=== PATIENT | female | born 1945 | race Caucasian/White ===

== ENCOUNTER → 2017-09-07 | Outpatient (REF) | payer MEDICARE, OTHER ==
[~2017-09-07] MED LIST: ANA1 PO; ANAS1TAB34 PO; APIX5TAB PO; ASPI-715 PO; ASPI81TA15 PO; ASPI81TA94 PO; ATOR20TA22 PO; ATOR40TA24 PO; ATOR40TA69 PO; ATR10 PO; B1/B1TAB PO; CA C1TAB85 PO; CHOL100059 PO; CYA100 PO; DILT180C2 PO; DRON400T4 PO; EXEM25TA5 PO; FEXO-1 PO; FISH OIL1 CAP PO; GLUC-198 PO; HYDR-385 PO; IBU200 PO; KET10 PO; LEVO100T95 PO; LEVO112T43 PO; LOSA-51 PO; LOSA25TA50 PO; LOSA25TA51 PO; METF-410 PO; METO50TA19 PO; MIRT-22 PO; NASAL SPRAY; OLME1TAB51 PO; PER PO; PRAV10TA45 PO; PRAV20TA66 PO; PYRI100T57 PO; UBID400C2 PO; VITAMIN B12; [UNRECOGNIZED DRUG - OTHER]
== END ==
LOC: ZZSENDIN 16:23
PROVIDERS: ATTEND Physician Assistant
DX: N39.0 Urinary tract infection, site not specified (principal)
CPT/HCPCS: 81001

== ENCOUNTER → 2017-09-13 | Outpatient (CLI) | payer MEDICARE, OTHER ==
--- NOTE | 2017-09-13 10:41 | RADIOLOGY IMAGING REPORT ---
FACILITY: [facility] [place] PATIENT NAME: Joshua Rodas : 1945 MR: [id number] V: [id number] EXAM DATE: ORDERING PHYSICIAN: SELVIN YEPEZ TECHNOLOGIST: Location: [facility] Patient: Joshua Rodas : 1945 Visit/Account:[id number] Date of Sevice: 09/13/2017 LUMBAR SPINE 2 OR 3 VIEW HISTORY: Lower back pain for six months COMPARISON: CT examination abdomen pelvis October 2016 FINDINGS: There are five lumbar-type vertebra with mild to moderate multilevel spondylotic changes with interve rtebral disc space narrowing, increased endplate sclerosis and bony spurring. This is most significa nt at L4-L5. Neutral positioning demonstrates subtle 4 mm retrolisthesis of L4 on L5 and 3 mm retrol isthesis of L5 on S1. Mild facet arthrosis is noted throughout. No acute fracture. IMPRESSION: 1. Mild to moderate multilevel spondylotic changes, most significant at L4-L5. 2. Grade 1 retrolisthesis L4 on L5 and L5 on S1. 3. Mild facet arthrosis throughout Report Dictated By: Mert Snyder MD at 09/13/2017 10:35 AM Report E-Signed By: Mert Snyder MD at 09/13/2017 10:37 AM WSN:[email or web address]
== END ==
LOC: RAD 09:39
PROVIDERS: ATTEND Physician Assistant
DX: M47.897 Other spondylosis, lumbosacral region (principal)
CPT/HCPCS: 72100

== ENCOUNTER → 2017-09-14 | Outpatient (CLI) | payer MEDICARE, OTHER | LOC: MRI 12:32 | PROVIDERS: ATTEND Physician Assistant | DX: Q76.2 Congenital spondylolisthesis (principal) | CPT/HCPCS: 72148 ==

== ENCOUNTER → 2017-09-18 | Outpatient (CLI) | payer MEDICARE, OTHER ==
--- NOTE | 2017-09-14 15:00 | RADIOLOGY IMAGING REPORT ---
[facility] PATIENT NAME: Joshua Rodas : 1945 MR: [id number] V: [id number] EXAM DATE: ORDERING PHYSICIAN: LANETTE ALVARENGA TECHNOLOGIST: Location: [facility] [place] Patient: Joshua Rodas : 1945 Visit/Account:[id number] Date of Sevice: 09/14/2017 EXAMINATION: L SPINE W/O CONTRAST INDICATION: Congenital spondylolisthesis COMPARISON: Radiographs September 13, 2017, MR September 21, 2006 TECHNIQUE: Multiplane MR imaging was performed through the lumbar spine without contrast. FINDINGS: Vertebral bodies: Normal Conus position/signal: Normal Marrow signal: Degenerative edema surrounds multiple disc spaces. Extraspinal structures including psoas muscles/paraspinal soft tissues: Normal L1-2: New moderate disc space degeneration, new posterior endplate spurring. Small disc protrusion kennedy s increased in size. Increased ligamentum flavum thickening. New bilateral lateral recess narrowing a nd new moderate thecal sac narrowing. Mild new bilateral foraminal narrowing. L2-3: Small disc protrusion similar to prior. New small left superimposed posterior disc extrusion, a xial T2 image 14. Increased ligamentum flavum thickening. Unchanged prominence of posterior epidural space fat. Moderate to severe thecal sac narrowing has increased. The new left posterior disc extrusi on partially effaces the left lateral recess which has increased. Right lateral recess narrowing has increased. Moderate proximal unchanged left foraminal narrowing. Otherwise normal. L3-4: 4 mm disc protrusion has slightly increased in size. Increased ligamentum flavum thickening. Pr ominence of posterior epidural space fat as before. New 4.5 mm transverse dimension synovial cyst wit hin the right posterior aspect of the canal, axial T2 image 17. Bilateral lateral recess narrowing an d severe thecal sac narrowing have increased. Moderate unchanged left foraminal narrowing. Moderate t o severe unchanged right foraminal narrowing. Increased right facet arthropathy. L4-5: Severe unchanged disc space degeneration. Unchanged posterior endplate spurring. Small unchange d disc protrusion. Unchanged left laminectomy defect. Unchanged bilateral lateral recess narrowing an d mild thecal sac narrowing. Moderate to severe proximal left foraminal narrowing has increased. Mode rate to potentially severe unchanged right foraminal narrowing. L5-S1: Unchanged retrolisthesis of L5 on S1, small unchanged disc protrusion. Severe unchanged left f oraminal narrowing. Moderate to severe unchanged right foraminal narrowing. IMPRESSION: 1. New moderate L1-2 thecal sac narrowing secondary to the constellation of findings described above. 2. Moderate to severe L2-3 thecal sac narrowing has increased. Left greater than right L2-3 lateral r ecess narrowing has increased. 3. Severe L3-4 thecal sac narrowing has increased. 4. Multilevel foraminal narrowing, see level by level comments above. 5. See additional level by level comments above. Report Dictated By: Ángel Salguero MD at 09/14/2017 2:44 PM Report E-Signed By: Ángel Salguero MD at 09/14/2017 2:55 PM WSN:[email or web address]
[~2017-09-18] MED LIST changes: +AMIO200T47 PO; +MOM PO; +NITR2.5C15 PO; +ZOLP-350 PO
--- NOTE | 2017-09-18 15:09 | RADIOLOGY IMAGING REPORT ---
FACILITY: [facility] PATIENT NAME: MARISABEL MCGUIRE : [id number] MR: [id number] V: [id number] EXAM DATE: ORDERING PHYSICIAN: LANETTE ALVARENGA TECHNOLOGIST: Lorin Ybarra PROCEDURE:BILATERAL DIGITAL SCREENING MAMMOGRAM WITH CAD ASSISTED INTERPRETATION & 3D TOMOSYNTHESIS COMPARISON:Prior mammograms 09/15/16, 09/15/15, 07/03/14, 11/12/13. INDICATIONS:SCREENING FINDINGS: Dense heterogeneous fibroglandular tissue is seen throughout the breasts. There is architectural distortion from prior lumpectomy in the upper outer quadrant of the Right breast and also in the deep central Left breast from additional lumpectomy remains stable. There is no demonstration of malignant appearing mass, malignant appearing calcifications or other secondary sign of malignancy in either breast. DIAGNOSTIC CATEGORY 2--BENIGN FINDING. RECOMMENDATIONS: ROUTINE MAMMOGRAM AND CLINICAL EVALUATION. IMPRESSION: BIRADS 2: Benign finding No significant abnormality is seen. Dictated by: Zayra Rios M.D. on 09/18/2017 at 13:45 Transcribed by: MARTIN on 09/18/2017 at 14:22 Approved by: Zayra Rios M.D. on 09/18/2017 at 15:07 [facility]
== END ==
LOC: MAMO 03:34
PROVIDERS: ATTEND Internal Medicine Medical Oncology
DX: Z12.31 Encounter for screening mammogram for malignant neoplasm of breast (principal)
CPT/HCPCS: 72148; 77063; 77067

== ENCOUNTER 2017-09-20 15:15 | Outpatient (RCR) | payer MEDICARE, OTHER ==
[~2017-09-20 15:15] MED LIST changes: -AMIO200T47 PO; -METF-410 PO; +METF-411 PO; -MOM PO; -NITR2.5C15 PO; -ZOLP-350 PO
[2017-09-20 15:37] VITALS: BP 144/94
[2017-09-20] MEDS ORDERED: ZOLP-350 PO (15:54)
[2017-09-20] MEDS ORDERED: MOM PO (15:54)
[2017-09-20] MEDS ORDERED: NITR2.5C15 PO (15:54)
[2017-09-20] MEDS ORDERED: AMIO200T47 PO (15:54)
--- NOTE | 2017-09-21 04:08 | ONCOLOGY FOLLOW UP NOTE ---
EVENT DATE: September 20, 2017 REASON FOR FOLLOWUP Breast cancer. INTERIM HISTORY The patient returns to clinic for a followup visit today. Since our last visit , she has continued on Arimidex therapy. She has had minimal toxicity from the medication, but she does report some ongoing back pain. She had a recent MRI of the spine, and she plans to visit with neurosurgery in [place] soon. She reports modest hot flashes and some ongoing fatigue. She plans to have cataract surgery soon. She has been dealing with atrial fibrillation. She has undergone a few cardioversions, which have lasted for a brief period of time. She thinks she may need to have an ablation procedure. She states that she is quite concerned about the possibility of any future discontinuation of her adjuvant aromatase inhibitor. She is very concerned, given her history, about her risk of breast cancer recurrence. REVIEW OF SYSTEMS Otherwise negative, and all systems were reviewed. PAST MEDICAL HISTORY 1. Atrial fibrillation. 2. Hypertension. 3. Hypercholesterolemia. 4. Hypothyroidism. 5. Breast cancer (see below). ONCOLOGY HISTORY 1. Right breast cancer. a. January 10, 2005: Mammogram reveals calcifications and a 3.5 cm nodule. Ultrasound confirms 3.5 cm simple cyst and a 1.5 cm solid area felt to be suspicious. Needle localization is performed on January 20, 2005. This shows a 2.5 x 2.7 x 2.9 cm moderately differentiated infiltrative ductal carcinoma. Estrogen receptor was positive, and progesterone receptor was positive. HER2/ wayne was not over expressed. Patient undergoes lumpectomy with sentinel lymph node biopsy in January of 2005. She received adjuvant radiation therapy between May 2005 and July 2005. She had done well until January of 2012. See below. b. January 2012: Left breast mammogram reveals abnormality leading to lumpectomy and radiation therapy. She was started on adjuvant Aromasin thereafter. Patient continues on adjuvant Arimidex, as the switch was made from Aromasin due to toxicity. 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 She is a nonsmoker. There is no history of alcohol abuse. There is no history of illicit drug use. FAMILY HISTORY Positive for leukemia in her father, lymphoma in her brother and sister, and metastatic carcinoma of unknown primary in her sister's daughter. Her son from prostate cancer at age 51. CURRENT MEDICATIONS 1. Metoprolol. 2. Eliquis. 3. Lipitor. 4. Anastrozole. 5. Metformin. 6. Vitamin D3. 7. Nitroglycerin p.r.n. 8. Zolpidem p.r.n. 9. Magnesium twice daily. 10. Amiodarone. 11. Losartan/hydrochlorothiazide. 12. Levothyroxine. ALLERGIES No known drug allergies. VITAL SIGNS Temperature is 98.4, blood pressure 144/94, heart rate is 136, respirations 16, oxygen saturation is 93% on room air. Weight is 90.3 kg. PHYSICAL EXAMINATION GENERAL: Patient is alert and oriented x 3, in no apparent distress, sitting in the exam room chair. She appears healthy. She is interactive and pleasant. HEENT: Exam reveals anicteric sclerae, no significant oropharyngeal lesions. NEUROLOGIC: Exam is grossly nonfocal, and her gait is normal. EXTREMITIES: Exam reveals no edema, clubbing or cyanosis. SKIN: Exam reveals no concerning rash or lesion. LABORATORY STUDIES Laboratory studies are reviewed per the outside laboratory record. Her CBC reveals a modest leukocytosis, but chemistries are unremarkable. IMAGING DEXA scan performed in March 2017 revealed osteopenia in the left hip. Mammogram performed on September 18 shows no abnormality with repeat annual mammogram recommended. ASSESSMENT AND PLAN Breast cancer. I had a good visit with Joshua today. We reviewed her history of bilateral breast cancers, with first diagnosis in 2004, where she had received five years of adjuvant aromatase inhibitor therapy, and again in 2011. She continues on adjuvant aromatase inhibitor therapy with Arimidex. She does seem to be tolerating the Arimidex with very modest, if any toxicity. She does continue to have back pain, but it is unlikely to be due to her adjuvant endocrine therapy. She does have a high heart rate today, and she is planning to visit with cardiology soon about her atrial fibrillation. She has an upcoming cataract surgery as well. We discussed the ongoing use of adjuvant endocrine therapy. She is very worried about her risk of recurrence. She does have osteopenia noted on her March 2017 DEXA scan. As discussed today, I am not particularly opposed to having her continue with extended Aromatase inhibitor therapy, but we do need to be careful about her bone mineral density. I have recommended a repeat DEXA scan in March of 2017. She agrees to this plan. I will see her back after that time to review the results. She will continue with calcium and vitamin D supplementation in the meantime. Exercise has been difficult for her due to her back pain, however. I spent a total of 30 minutes of time face to face with the patient today, and 25 minutes of this was spent in direct counseling and coordination of care. HUGO
[2017-09-22] MEDS ORDERED: METO100T20 PO (13:37)
[2017-09-22] MEDS ORDERED: LOSA-54 PO (13:37)
[2017-09-22] MEDS ORDERED: ZOLP-358 PO (13:37)
[2017-09-22] MEDS ORDERED: MAGN30TA5 PO (13:38)
[2017-09-22] MEDS ORDERED: NIT3 SL (13:38)
[2017-09-22] MEDS ORDERED: AMIO200T47 PO (13:38)
== END 2017-10-25 14:03 | disposition home or self-care (01) ==
LOC: ONC 15:15
PROVIDERS: ATTEND Internal Medicine Medical Oncology
DX: C50.911 Malignant neoplasm of unspecified site of right female breast (principal); Z17.0 Estrogen receptor positive status [ER+]; Z79.811 Long term (current) use of aromatase inhibitors; I48.91 Unspecified atrial fibrillation; M85.80 Other specified disorders of bone density and structure, unspecified site; M54.9 Dorsalgia, unspecified
CPT/HCPCS: 99212

== ENCOUNTER 2017-09-29 00:46 | Day surgery (SDC) | payer MEDICARE, OTHER ==
[~2017-09-29] VITALS: Ht 137.2 cm; Wt 91.6 kg
[~2017-09-29 00:46] MED LIST changes: -METF-410 PO; +METF-411 PO
[2017-09-29] MEDS ORDERED: acetaZOLAMIDE 500 MG CAPCR PO ONE (06:00)
[2017-09-29] MEDS ORDERED: PROPOFOL EMUL(*) 10MG/ML 20 ML 20 ML ONE (08:22)
[2017-09-29 11:03] VITALS: BP 121/68
[2017-09-29] MEDS ORDERED: NORMOSOL R SOLN(*) 1000 ML BAG 1,000 ML IV PRN (11:30)
[2017-09-29] MEDS ORDERED: LIDOCAINE/SOD BICARB 8.4% SYR ID ONE (11:30)
[2017-09-29 13:10] VITALS: BP 126/98
[2017-09-29] MEDS ORDERED: OPHTHALMIC PROCEDURE 1 OU PRN (13:30)
[2017-09-29] MEDS ORDERED: OPHTHALMIC PROCEDURE 2 OU PRN ×2 (13:30)
--- NOTE | 2017-09-29 15:55 | FOSTER RIGHT EYE CATARACT ---
EVENT DATE: September 29, 2017 SURGEON: Shakir Iraheta MD ANESTHESIA: Topical. PREOPERATIVE DIAGNOSIS Cataract, right eye. POSTOPERATIVE DIAGNOSIS Cataract, right eye. PROCEDURE Phacoemulsification of cataractous lens with implantation of an intraocular lens , right eye. DESCRIPTION OF PROCEDURE The risks and benefits and alternatives were carefully discussed with the patient, and preoperative consent was obtained. The patient was brought to the operating room after receiving topical anesthetic. The patient was prepped and draped using sterile technique in the usual manner. A stab incision was made and the chamber was inflated with preservative-free lidocaine. DuoVisc was injected to inflate the chamber. A 2.2 mm blade was used to enter the anterior chamber. Utrata forceps were used to tear a circular capsulorrhexis. BSS was used to hydrodissect the nucleus. Phaco tip was introduced, and the nucleus was chopped into four quadrants. Each quadrant was removed. The I/A tip was used to remove the cortex. The bag was inflated with ProVisc. The intraocular lens was injected into the capsular bag. The I/A tip was used to remove the ProVisc. The wound was found to be watertight. Vigamox, Nevanac, and Maxitrol ointment were placed in the patient's eye. The patient's eye was patched, and the patient was taken to the recovery room in stable condition. The patient was examined in the recovery room and found to be stable prior to release from the hospital. HUGO
== END 2017-09-29 13:20 | disposition home or self-care (01) ==
LOC: OR 00:46
PROVIDERS: ATTEND Ophthalmology
DX: H25.11 Age-related nuclear cataract, right eye (principal); H25.12 Age-related nuclear cataract, left eye
CPT/HCPCS: 36415; 36416; 66984; 82948; 85027; 85610; A9270; J2704; V2632; 82310; 82374; 82435; 82565; 82947; 84132; 84295; 84520

== ENCOUNTER → 2017-09-29 | Outpatient (CLI) | payer MEDICARE, OTHER ==
[~2017-09-29] MED LIST changes: +AMIO200T47 PO; +LOSA-54 PO; +MAGN30TA5 PO; +METF-410 PO; -METF-411 PO; +METO100T20 PO; +MOM PO; +NIT3 SL; +NITR2.5C15 PO; +ZOLP-350 PO; +ZOLP-358 PO
[2017-09-29 11:22] LABS: INR 1.18
== END ==
LOC: LAB 10:29
PROVIDERS: ATTEND Internal Medicine
DX: Z01.810 Encounter for preprocedural cardiovascular examination (principal); I48.91 Unspecified atrial fibrillation
CPT/HCPCS: 36415; 82310; 82374; 82435; 82565; 82947; 84132; 84295; 84520; 85027; 85610

== ENCOUNTER → 2017-10-01 | Outpatient (REF) | payer MEDICARE, OTHER ==
[~2017-10-01] MED LIST changes: +METF-410 PO; -METF-411 PO
== END ==
LOC: ZZSTITCHES 11:14
PROVIDERS: ATTEND Physician Assistant
DX: N39.0 Urinary tract infection, site not specified (principal)
CPT/HCPCS: 87088

== ENCOUNTER → 2018-01-11 | Outpatient (CLI) | payer MEDICARE, OTHER ==
[~2018-01-11] MED LIST changes: -AMIO200T47 PO; +AMIO200T49 PO; -METF-410 PO; +METF-411 PO
== END ==
LOC: RESP 20:49
PROVIDERS: ATTEND Physician Assistant
DX: G47.33 Obstructive sleep apnea (adult) (pediatric) (principal); G47.36 Sleep related hypoventilation in conditions classified elsewhere

== ENCOUNTER → 2018-02-16 | Outpatient (REF) | payer MEDICARE, OTHER ==
[~2018-02-16] MED LIST changes: -LOSA25TA50 PO; +LOSA25TA52 PO; -METF-411 PO; +METF-450 PO
== END ==
LOC: ZZSENDIN 11:39
PROVIDERS: ATTEND Physician Assistant
DX: E83.42 Hypomagnesemia (principal)
CPT/HCPCS: 83735

== ENCOUNTER → 2018-03-02 | Outpatient (REF) | payer MEDICARE, OTHER | LOC: ZZSENDIN 11:17 | PROVIDERS: ATTEND Physician Assistant | DX: E83.42 Hypomagnesemia (principal) | CPT/HCPCS: 83735 ==

== ENCOUNTER → 2018-03-14 | Outpatient (CLI) | payer MEDICARE, OTHER ==
--- NOTE | 2018-03-14 15:34 | RADIOLOGY IMAGING REPORT ---
FACILITY: [facility] [place]IENT NAME: Joshua Rodas : 1945 MR: [id number] V: [id number] EXAM DATE: ORDERING PHYSICIAN: SELVIN YEPEZ TECHNOLOGIST: Location: [facility] - [place] Patient: Joshua Rodas : 1945 Visit/Account:[id number] Date of Sevice: 03/14/2018 KNEE 3 VIEW RIGHT HISTORY: Chronic right knee pain. No known injury. Additional history: None COMPARISON: Radiographs dated 08/01/2013 Findings: There is moderate joint space narrowing medial compartment with osteophytosis most prominen t in the medial and femoral patellar compartments. Minimal degenerative changes in the lateral miguel rtment. The appearances very similar to prior radiographs from 2013. On the lateral view there is a several small 1-2 mm radiodensities projecting over the anterior aspec t of the joint possibly representing a small intra-articular loose bodies. FINDINGS: Moderate right knee osteoarthropathy similar in appearance to 2014. IMPRESSION: Report Dictated By: Simba Gracia MD at 03/14/2018 3:27 PM Report E-Signed By: Simba Gracia MD at 03/14/2018 3:30 PM WSN:[id number]
== END ==
LOC: RAD 13:05
PROVIDERS: ATTEND Physician Assistant
DX: M17.11 Unilateral primary osteoarthritis, right knee (principal)

== ENCOUNTER → 2018-03-23 | Outpatient (CLI) | payer MEDICARE, OTHER | LOC: RESP 20:47 | PROVIDERS: ATTEND Physician Assistant | DX: G47.33 Obstructive sleep apnea (adult) (pediatric) (principal); G47.61 Periodic limb movement disorder; G47.36 Sleep related hypoventilation in conditions classified elsewhere ==

== ENCOUNTER → 2018-05-01 | Outpatient (CLI) | payer MEDICARE, OTHER ==
[~2018-05-01] MED LIST changes: -LOSA25TA52 PO; +LOSA25TA57 PO
--- NOTE | 2018-05-01 14:39 | RADIOLOGY IMAGING REPORT ---
FACILITY: [facility] [place] PATIENT NAME: Joshua Rodas : 1945 MR: [id number] V: [id number] EXAM DATE: ORDERING PHYSICIAN: LANETTE ALVARENGA TECHNOLOGIST: Location: [facility] Patient: Joshua Rodas : 1945 Visit/Account:[id number] Date of Sevice: 05/01/2018 DEXA Scan Clinical history: Osteopenia, breast cancer. Comparison: DEXA scan from . LUMBAR SPINE: The bone mineral density (BMD) measured from L1-L4 correlates with a Z-score of 3 and a T-score of 2 which is Normal as defined by the World Health Organization. The corresponding risk of fracture in t he lumbar spine is Not increased compared with a young adult reference population. This value has in creased by 1.1 % since the prior study. More than 5% change is considered significant. HIP: Bone mineral density (BMD) measured in the LEFT total hip region correlates with a Z-score zero and a T-score of -1.1 which is osteopenia as defined by the World Health Organization. The corresponding risk of fracture in the hip is 2-3 times increased compared to a young adult reference population. Th is value has decrease by 0.5 % since the prior study. More than 5% change is considered significant. T score left femoral neck -1.3 Bone mineral density (BMD) measured in the Femoral Neck region measures 0.863 g/cm?. IMPRESSION: 1. Lumbar spine: Normal. There has been 1.1% increase in the bone mineral density since the previou s exam. 2. Left Total Hip: Osteopenia. There has been 0.5% decrease in the bone mineral density since the p revious exam. 3. Femoral Neck: Bone Mineral Density is 0.863 g/cm? The next DEXA scan of this patient should include the following sites: L1-L4 and the left hip. FRAX? WHO Fracture Risk Assessment Tool link: <http://www.shef.ac.uk/FRAX/tool.jsp?locationValue=9> PLEASE NOTE: 1) The World Health Organization defines low BMD as follows: T-score Normal > -1 Osteopenia < -1 and > -2.5 Osteoporosis < -2.5 without fractures Established osteoporosis < -2.5 with fractures 2) In general, you may wish to consider: Diagnosis Treatment Follow-up DEXA Normal BMD Prevention 2-3 years Osteopenia Prevention/therapy 1-2 years Osteoporosis Therapy Yearly 3) Fracture risk estimated from the T-score is more accurate for vertebral fractures (often spontane ous) than for hip fractures. Report Dictated By: Zayra Rios MD at 05/01/2018 2:34 PM Report E-Signed By: Zayra Rios MD at 05/01/2018 2:35 PM WSN:[id number]
== END ==
LOC: RAD 02:08
PROVIDERS: ATTEND Internal Medicine Medical Oncology
DX: Z13.820 Encounter for screening for osteoporosis (principal); M85.80 Other specified disorders of bone density and structure, unspecified site
CPT/HCPCS: 77080

== ENCOUNTER 2018-05-11 11:00 | Outpatient (RCR) | payer MEDICARE, OTHER ==
[2018-02-12 16:10] VITALS: BP 104/70
[2018-02-12 16:11] VITALS: BP 122/70
--- NOTE | 2018-02-12 16:57 | CARDIAC REHAB PLAN OF CARE ---
Physician: Scotty Naqvi MD Patient is being seen: Fabi Self Medical Diagnosis: MVR, TVR, Afib Date of Onset: 01/25/18 Date of Initial Evaluation: 02/12/18 Date patient was last seen: 02/12/18 INTERVENTIONS: Due Date: 03/14/18 Patient Assessment: Patient comes to Cardiac Rehab following two valve repairs (both Mitral and Tricuspid Valves) and a Tripp-Maze IV Operation for her diagnosed atrial fibrillation. She also has a history of Type-2 Diabetes, hypertension, hyperlipidemia, breast cancer, and was recently diagnosed with sleep apnea. Over the next three months her main goals are to increase stamina and energy. She has a great support system through several different relatives (, daughter, and sister). She is currently sedentary but is eager to join the program. Exercise Assessment: During her 6-Minute Walk Test, the patient walked a total of 350ft, this amounted to an average speed of 0.66mph. She took three breaks during her test in which she sat for a minimum of 30 seconds to catch her breath and relax her back. Her SPO2 was WNL during the test (92-95%) on room air, which is above her resting (88%). She did, however, report significant shortness of breath at a +2 by minute 2 and +5 by minute 4. Her heart rate remained between 80-95bpm. While testing equipment she adhered to the recumbent bike well, stating it felt good on her knee and did not bother her back. This will be her primary form of exercise. Exercise Plan: Goals: By the end of the program it is our goals to have the patient exercising consistently for 150 minutes/week. This amounts to 50 minutes total per session. At least 30 of these minutes should be done consistently on the same machine (preferably the recumbent bike). It is also our goal to have her performing on average between 3-6 METs by the end of the program within her target HR goal at the time. Exercise Prescription: For the next month, the patients exercise prescription is as follows: Mode: Recumbent bike Frequency: 3 days/week (MWF) Duration: 15-30 minutes Intensity: HR 80-95bpm, 2.5-3.0 METs, RPE 2-3 Progression: The patients first goal will be to start progressing total time towards 30 minutes/session. Education: Primary exercise education will be on how to incorporate leisure time activity at home and how to properly progress exercise while at rehab over the next three months. Exercise Reassessment (Date: ): Exercise Discharge/Follow-Up (Date: ): Nutrition Assessment: Patient currently reports eating a typical [place] diet. This includes simple carbohydrates, lean meat, and fresh fruits/vegetables. She does regularly avoid dairy. She admits to having a sweet tooth and eating too many carbohydrates than she should. She and her family were receptive to the nutrition information provided and anxious to involve it on a familial level. She is diabetic but has it relatively under control as her HbA1c levels remain constant. She and her report starting to eat smaller portions and using portion control to help lose weight. The patient has a goal to eventually lose up to 30lbs. Nutrition Plan: Goals: Our goals for the program include helping the patient, and her family, develop nutritional behavior changes that can progress and be maintained through her lifetime. This include incorporating more whole grains, avoiding simple carbohydrates and sugar, and helping her understand nutrition label reading. Intervention: We will provide education to both the patient and her family through multiple sources including hard copy hand-outs and electronic versions that can be shared. Education: Education will focus first towards healthy food options, meals, and alternatives. We will then progress towards the how-tos of reading food/nutrition labels. Nutrition Reassessment (Date: ): Nutrition Discharge/Follow-Up (Date: ): Psychosocial Assessment: Patient reports at the higher end of normal depression limits according to the HADS assessment (7/21) and normal (4/21) for anxiety. This is confirmed verbally by the patient as she does admit to having some additional stress since her surgery and the difficulties following it. She does, however, have an amazing support system through her family that can aid in her process back to health. She is currently highly motivated to begin the program. Psychosocial Plan: Goals: Our goals will be to maintain the healthy psychosocial status the patient currently reports and to continue involving her family through the rehabilitation process. Intervention: We will continue to provide social support to the patient during her sessions as well as reach out to her family when appropriate for additional information and motivation. Education: Education will include ways to appropriately manage the anxiety associated with and learn to accept health decline her current health status. Psychosocial Reassessment (Date: ): Psychosocial Discharge/Follow-Up (Date: ): Diabetes Management Assessment: Patient is currently diagnosed with Type-2 Diabetes. She is currently taking metformin, but claims her physician told her that it is unnecessary to take her blood sugar levels as long as she is taking her medication. She does not follow a specific diet in hopes of controlling or altering her diabetes status. She says her HbA1c has remained stable for the past 3 years or so near 6.3. Diabetes Management Plan: Goals: Our primary goal will be to collect information on the patients T2D status to verify the information that she shares. Following this information, we will help the patient learn to appreciate and respect her diagnosis and take an active role in controlling and being aware of her status. Intervention: This will include why it is important to take and know her blood sugar levels and how exercise and diet can help her diabetes status and reverse any current or future complications associated with it. Education: Education will focus on diabetes normal values and possible outcomes from uncontrolled T2D, and how they can be affected by behavior change. Diabetes Management Reassessment (Date: ): Diabetes Management Discharge/Follow-Up (Date: ): Weight Management Assessment: Patient currently weights approximately 196lbs with a BMI of 34kg/m2. Her waist circumference is 112cm which is above the average for women and demonstrates excess adiposity. Patient reports she would like to lose close to 35lbs. Weight Management Assessment Plan: Goals: Our goals will be to help the patient establish healthy behavior change that will over time help promote weight loss. Intervention: Our primary intervention will be to incorporate healthy dietary changes that can be maintained as well as increasing leisure time activity. Education: We will educate the patient that 30lbs is not a realistic goal to have over such a short period of time. We will focus on the scientifically recommended 5% loss of body weight for improved quality of life, which equals to a 10lbs loss for her. Weight Management Assessment Reassessment (Date: ): Weight Management Assessment /Follow-Up (Date: ): Physician Signature: Date: MTDD
[2018-02-14 13:21] VITALS: BP 124/72
[2018-02-14 13:22] VITALS: BP 114/62
[2018-02-16 17:46] VITALS: BP 110/62
[2018-02-16 17:47] VITALS: BP 112/64
[2018-02-19 13:31] VITALS: BP_SYST 102; BP_SYST 116; BP_DIAS 62; BP_DIAS 66
[2018-02-21 13:07] VITALS: BP 124/72
[2018-02-21 13:09] VITALS: BP 112/70
[2018-02-23 13:18] VITALS: BP 114/66
[2018-02-23 13:19] VITALS: BP 114/66
[2018-02-26 13:22] VITALS: BP 116/70
[2018-02-26 13:23] VITALS: BP 116/66
[2018-02-28 13:28] VITALS: BP 110/62
[2018-02-28 13:29] VITALS: BP 112/74
[2018-03-02 17:10] VITALS: BP 130/68
[2018-03-02 17:11] VITALS: BP 110/64
[2018-03-05 17:46] VITALS: BP 120/72
[2018-03-05 17:47] VITALS: BP 128/80
[2018-03-07 13:34] VITALS: BP 118/80
[2018-03-07 13:35] VITALS: BP 132/84
--- NOTE | 2018-03-08 12:16 | CARDIAC REHAB PLAN OF CARE ---
Physician: Scotty Naqvi MD Patient is being seen: Fabi Self Medical Diagnosis: MVR, TVR, Afib Date of Onset: 01/25/18 Date of Initial Evaluation: 02/12/18 Date patient was last seen: 03/07/18 Number of treatments: 11 Number of cancellations/No Shows: 0 INTERVENTIONS: Due Date: 04/08/18 Patient Assessment: Patient comes to Cardiac Rehab following two valve repairs (both Mitral and Tricuspid Valves) and a Tripp-Maze IV Operation for her diagnosed atrial fibrillation. She also has a history of Type-2 Diabetes, hypertension, hyperlipidemia, breast cancer, and was recently diagnosed with sleep apnea. Over the next three months her main goals are to increase stamina and energy. She has a great support system through several different relatives (, daughter, and sister). She is currently sedentary but is eager to join the program. Exercise Assessment: During her 6-Minute Walk Test, the patient walked a total of 350ft, this amounted to an average speed of 0.66mph. She took three breaks during her test in which she sat for a minimum of 30 seconds to catch her breath and relax her back. Her SPO2 was WNL during the test (92-95%) on room air, which is above her resting (88%). She did, however, report significant shortness of breath at a +2 by minute 2 and +5 by minute 4. Her heart rate remained between 80-95bpm. While testing equipment she adhered to the recumbent bike well, stating it felt good on her knee and did not bother her back. This will be her primary form of exercise. Exercise Plan: Goals: By the end of the program it is our goals to have the patient exercising consistently for 150 minutes/week. This amounts to 50 minutes total per session. At least 30 of these minutes should be done consistently on the same machine (preferably the recumbent bike). It is also our goal to have her performing on average between 3-6 METs by the end of the program within her target HR goal at the time. Exercise Prescription: For the next month, the patients exercise prescription is as follows: Mode: Recumbent bike Frequency: 3 days/week (MWF) Duration: 15-30 minutes Intensity: HR 80-95bpm, 2.5-3.0 METs, RPE 2-3 Progression: The patients first goal will be to start progressing total time towards 30 minutes/session. Education: Primary exercise education will be on how to incorporate leisure time activity at home and how to properly progress exercise while at rehab over the next three months. Exercise Reassessment (Date: 03/08/18): The patient has been making significant progress over the past 3 weeks of rehab. Upon her enrollment she was extremely deconditioned and found it exhausting to do 15 minutes of exercise and often reported shortness of breath associated with exertion. Since then she has increased her total exercise duration to completing at least 45 minutes/session. During these sessions she has been able to maintain her targeted RPE and THR (averaging 80-85bpm) and has recently been able to average within her ideal MET range (2.6 METs). She also has not reported any shortness of breathrather she reports feeling good and being less fatigued. Lastly, she has also been motivated to start stretching at home on her own, which is a great behavior change. Due to this significant improvement we are going to create new target goals for this next month of exercise. Mode: Recumbent bike & NuStep Frequency: 3 days/week (MWF) Duration: 45-50 minutes/session Intensity: HR 85-95bpm, 2.5-3.5 METs, RPE 4-5 Progression: The patients next goal will be to maintain duration but increase intensity. By the end of the next month we would like her to be exercising on average at 3.5 METs. Exercise Discharge/Follow-Up (Date: ): Nutrition Assessment: Patient currently reports eating a typical [place] diet. This includes simple carbohydrates, lean meat, and fresh fruits/vegetables. She does regularly avoid dairy. She admits to having a sweet tooth and eating too many carbohydrates than she should. She and her family were receptive to the nutrition information provided and anxious to involve it on a familial level. She is diabetic but has it relatively under control as her HbA1c levels remain constant. She and her report starting to eat smaller portions and using portion control to help lose weight. The patient has a goal to eventually lose up to 30lbs. Nutrition Plan: Goals: Our goals for the program include helping the patient, and her family, develop nutritional behavior changes that can progress and be maintained through her lifetime. This include incorporating more whole grains, avoiding simple carbohydrates and sugar, and helping her understand nutrition label reading. Intervention: We will provide education to both the patient and her family through multiple sources including hard copy hand-outs and electronic versions that can be shared. Education: Education will focus first towards healthy food options, meals, and alternatives. We will then progress towards the how-tos of reading food/nutrition labels. Nutrition Reassessment (Date: 03/08/18): The patient and her family have been very receptive to nutritional information and have themselves asked for additional information they can provide to relatives. The patient reports continuing to eat smaller portions and enjoys the discussion about nutritional behavior changes. With this we will now move forward with instead of just providing information to now challenging her to make steps towards behavior change. We will start by having her assess the food she is currently eating and ask her to try making small changes to it (such as including whole grains and increasing vegetable intake). Nutrition Discharge/Follow-Up (Date: ): Psychosocial Assessment: Patient reports at the higher end of normal depression limits according to the HADS assessment (12/16) and normal (4/) for anxiety. This is confirmed verbally by the patient as she does admit to having some additional stress since her surgery and the difficulties following it. She does, however, have an amazing support system through her family that can aid in her process back to health. She is currently highly motivated to begin the program. Psychosocial Plan: Goals: Our goals will be to maintain the healthy psychosocial status the patient currently reports and to continue involving her family through the rehabilitation process. Intervention: We will continue to provide social support to the patient during her sessions as well as reach out to her family when appropriate for additional information and motivation. Education: Education will include ways to appropriately manage the anxiety associated with and learn to accept health decline her current health status. Psychosocial Reassessment (Date: 03/08/18): In reflection of the patients last few weeks at rehab and after talking with her one-on-one, she appears to be in higher spirits than when she started. She reports she feels a little more energized and is motivated by the progress she can see. She also says she enjoys having goalsit gives her something to work towards and helps to motivate her further. Lastly, we have been successful at involving her family in her rehab. They attend regularly with her and we have been able to provide them with information towards nutrition and additional stretching exercises which they report that have completed at home. All in all we will continue along this path over the next month and keep monitoring for improvements and setbacks as they arise. Psychosocial Discharge/Follow-Up (Date: ): Short Term Goals Met: Diabetes Management Assessment: Patient is currently diagnosed with Type-2 Diabetes. She is currently taking metformin, but claims her physician told her that it is unnecessary to take her blood sugar levels as long as she is taking her medication. She does not follow a specific diet in hopes of controlling or altering her diabetes status. She says her HbA1c has remained stable for the past 3 years or so near 6.3. Diabetes Management Plan: Goals: Our primary goal will be to collect information on the patients T2D status to verify the information that she shares. Following this information, we will help the patient learn to appreciate and respect her diagnosis and take an active role in controlling and being aware of her status. Intervention: This will include why it is important to take and know her blood sugar levels and how exercise and diet can help her diabetes status and reverse any current or future complications associated with it. Education: Education will focus on diabetes normal values and possible outcomes from uncontrolled T2D, and how they can be affected by behavior change. Diabetes Management Reassessment (Date: 03/08/18): We are unaware at this time as to any improvement made towards diabetes management. We have been focused on other educational aspectsall of which have been seeing positive outcomes. Over the next month we will try to focus more of our educational resources towards her awareness of her diabetic state. Diabetes Management Discharge/Follow-Up (Date: ): Weight Management Assessment: Patient currently weights approximately 196lbs with a BMI of 34kg/m2. Her waist circumference is 112cm which is above the average for women and demonstrates excess adiposity. Patient reports she would like to lose close to 35lbs. Weight Management Assessment Plan: Goals: Our goals will be to help the patient establish healthy behavior change that will over time help promote weight loss. Intervention: Our primary intervention will be to incorporate healthy dietary changes that can be maintained as well as increasing leisure time activity. Education: We will educate the patient that 30lbs is not a realistic goal to have over such a short period of time. We will focus on the scientifically recommended 5% loss of body weight for improved quality of life, which equals to a 10lbs loss for her. Weight Management Assessment Reassessment (Date: 03/08/18): The patient reports having lost significant amount of weight due to her previous edema and fluid retention. Most of that fluid has been lost now and she feels more comfortable. On top of that fluid loss, she reports that she has lost an additional 2lbs which she believes is strictly weight (not fluid). This is a great progress for her towards weight management, and we will continue to monitor her for future improvements and possible setbacks. Weight Management Assessment /Follow-Up (Date: ): Physician Signature: Date: RICARDOD
[2018-03-12 13:34] VITALS: BP_SYST 118; BP_SYST 132; BP_DIAS 70; BP_DIAS 74
[2018-03-14 13:11] VITALS: BP 118/80
[2018-03-14 13:12] VITALS: BP 124/74
[2018-03-16 17:24] VITALS: BP 104/64
[2018-03-16 17:25] VITALS: BP 112/70
[2018-03-19 17:37] VITALS: BP 114/76
[2018-03-19 17:39] VITALS: BP 110/68
[2018-03-21 13:50] VITALS: BP 120/78
[2018-03-21 13:52] VITALS: BP 118/78
[2018-03-23 13:11] VITALS: BP 142/78
[2018-03-23 13:12] VITALS: BP 120/76
[2018-03-26 13:02] VITALS: BP 138/78
[2018-03-26 13:08] VITALS: BP 122/78
[2018-03-28 13:32] VITALS: BP 124/70
[2018-03-28 13:33] VITALS: BP 110/60
[2018-04-02 17:01] VITALS: BP 122/72
[2018-04-02 17:15] VITALS: BP 112/60
[2018-04-04 13:21] VITALS: BP 132/80
[2018-04-04 13:22] VITALS: BP 112/62
[2018-04-04 17:10] VITALS: BP 132/80
[2018-04-06 13:25] VITALS: BP 128/80
[2018-04-06 13:27] VITALS: BP 122/78
[2018-04-09 13:12] VITALS: BP_SYST 122; BP_SYST 126; BP_DIAS 68; BP_DIAS 76
--- NOTE | 2018-04-10 12:04 | CARDIAC REHAB PLAN OF CARE ---
Physician: Scotty Naqvi MD Patient is being seen: Aramis Fabi Medical Diagnosis: MVR, TVR, Afib Date of Onset: 01/25/18 Date of Initial Evaluation: 02/12/18 Date patient was last seen: 04/09/18 Number of treatments: 23 INTERVENTIONS: Due Date: 05/10/18 Patient Assessment: Patient comes to Cardiac Rehab following two valve repairs (both Mitral and Tricuspid Valves) and a Tripp-Maze IV Operation for her diagnosed atrial fibrillation. She also has a history of Type-2 Diabetes, hypertension, hyperlipidemia, breast cancer, and was recently diagnosed with sleep apnea. Over the next three months her main goals are to increase stamina and energy. She has a great support system through several different relatives (, daughter, and sister). She is currently sedentary but is eager to join the program. Exercise Assessment: During her 6-Minute Walk Test, the patient walked a total of 350ft, this amounted to an average speed of 0.66mph. She took three breaks during her test in which she sat for a minimum of 30 seconds to catch her breath and relax her back. Her SPO2 was WNL during the test (92-95%) on room air, which is above her resting (88%). She did, however, report significant shortness of breath at a +2 by minute 2 and +5 by minute 4. Her heart rate remained between 80-95bpm. While testing equipment she adhered to the recumbent bike well, stating it felt good on her knee and did not bother her back. This will be her primary form of exercise. Exercise Plan: Goals: By the end of the program it is our goals to have the patient exercising consistently for 150 minutes/week. This amounts to 50 minutes total per session. At least 30 of these minutes should be done consistently on the same machine (preferably the recumbent bike). It is also our goal to have her performing on average between 3-6 METs by the end of the program within her target HR goal at the time. Exercise Prescription: For the next month, the patients exercise prescription is as follows: Mode: Recumbent bike Frequency: 3 days/week (MWF) Duration: 15-30 minutes Intensity: HR 80-95bpm, 2.5-3.0 METs, RPE 2-3 Progression: The patients first goal will be to start progressing total time towards 30 minutes/session. Education: Primary exercise education will be on how to incorporate leisure time activity at home and how to properly progress exercise while at rehab over the next three months. Exercise Reassessment (Date: 03/08/18): The patient has been making significant progress over the past 3 weeks of rehab. Upon her enrollment she was extremely deconditioned and found it exhausting to do 15 minutes of exercise and often reported shortness of breath associated with exertion. Since then she has increased her total exercise duration to completing at least 45 minutes/session. During these sessions she has been able to maintain her targeted RPE and THR (averaging 80-85bpm) and has recently been able to average within her ideal MET range (2.6 METs). She also has not reported any shortness of breathrather she reports feeling good and being less fatigued. Lastly, she has also been motivated to start stretching at home on her own, which is a great behavior change. Due to this significant improvement we are going to create new target goals for this next month of exercise. Mode: Recumbent bike & NuStep Frequency: 3 days/week (MWF) Duration: 45-50 minutes/session Intensity: HR 85-95bpm, 2.5-3.5 METs, RPE 4-5 Progression: The patients next goal will be to maintain duration but increase intensity. By the end of the next month we would like her to be exercising on average at 3.5 METs. Exercise Reassessment (Date: 04/09/18): Over the past month the patient has undergone assessment on her knee which has concluded with diagnosis of extensive osteoarthritis. The pain in her knee as a result has caused her to dial back her exercise accordingly. However, the patient is still highly motivated to exercise and likes to push herself to improve. We have had to help her pace herself so that her pain is not too bad the days following exercise. In regards to her previous goals, despite her knee pain she has been able to achieve most of her goals on average. She has been exercise for at least 40+ minutes each session and her MET level is on average 2.5 (which is at the lower end of her previous goal). However, since we have to dial back the intensity her heart rate does not achieve her target goal. Over the next month, her goals will be adjusted to the following: Mode: Recumbent bike, Arm Ergometer, and NuStep Frequency: 3 days/week (MWF) Duration: 40+ minutes/session Intensity: THR 10bpm > resting HR METS 2.5-3.0 We will also encourage her to continue stretching at home to help relieve any discomfort. Exercise Discharge/Follow-Up (Date: ): Nutrition Assessment: Patient currently reports eating a typical [place] diet. This includes simple carbohydrates, lean meat, and fresh fruits/vegetables. She does regularly avoid dairy. She admits to having a sweet tooth and eating too many carbohydrates than she should. She and her family were receptive to the nutrition information provided and anxious to involve it on a familial level. She is diabetic but has it relatively under control as her HbA1c levels remain constant. She and her report starting to eat smaller portions and using portion control to help lose weight. The patient has a goal to eventually lose up to 30lbs. Nutrition Plan: Goals: Our goals for the program include helping the patient, and her family, develop nutritional behavior changes that can progress and be maintained through her lifetime. This include incorporating more whole grains, avoiding simple carbohydrates and sugar, and helping her understand nutrition label reading. Intervention: We will provide education to both the patient and her family through multiple sources including hard copy hand-outs and electronic versions that can be shared. Education: Education will focus first towards healthy food options, meals, and alternatives. We will then progress towards the how-tos of reading food/nutrition labels. Nutrition Reassessment (Date: 03/08/18): The patient and her family have been very receptive to nutritional information and have themselves asked for additional information they can provide to relatives. The patient reports continuing to eat smaller portions and enjoys the discussion about nutritional behavior changes. With this we will now move forward with instead of just providing information to now challenging her to make steps towards behavior change. We will start by having her assess the food she is currently eating and ask her to try making small changes to it (such as including whole grains and increasing vegetable intake). Nutrition Reassessment (Date: 04/09/18): No update from previous reassessment. Nutrition Discharge/Follow-Up (Date: ): Psychosocial Assessment: Patient reports at the higher end of normal depression limits according to the HADS assessment (7/21) and normal (4/21) for anxiety. This is confirmed verbally by the patient as she does admit to having some additional stress since her surgery and the difficulties following it. She does, however, have an amazing support system through her family that can aid in her process back to health. She is currently highly motivated to begin the program. Psychosocial Plan: Goals: Our goals will be to maintain the healthy psychosocial status the patient currently reports and to continue involving her family through the rehabilitation process. Intervention: We will continue to provide social support to the patient during her sessions as well as reach out to her family when appropriate for additional information and motivation. Education: Education will include ways to appropriately manage the anxiety associated with and learn to accept health decline her current health status. Psychosocial Reassessment (Date: 03/08/18): In reflection of the patients last few weeks at rehab and after talking with her one-on-one, she appears to be in higher spirits than when she started. She reports she feels a little more energized and is motivated by the progress she can see. She also says she enjoys having goalsit gives her something to work towards and helps to motivate her further. Lastly, we have been successful at involving her family in her rehab. They attend regularly with her and we have been able to provide them with information towards nutrition and additional stretching exercises which they report that have completed at home. All in all we will continue along this path over the next month and keep monitoring for improvements and setbacks as they arise. Psychosocial Reassessment (Date: 04/09/18): The patient continues to be in high spirits and enjoy cardiac rehab. Her family has since stopped regularly attending her CR sessions, demonstrating to us the trust they have instilled in our ability to provide care. We will continue along the same path this next month. Psychosocial Discharge/Follow-Up (Date: ): Diabetes Management Assessment: Patient is currently diagnosed with Type-2 Diabetes. She is currently taking metformin, but claims her physician told her that it is unnecessary to take her blood sugar levels as long as she is taking her medication. She does not follow a specific diet in hopes of controlling or altering her diabetes status. She says her HbA1c has remained stable for the past 3 years or so near 6.3. Diabetes Management Plan: Goals: Our primary goal will be to collect information on the patients T2D status to verify the information that she shares. Following this information, we will help the patient learn to appreciate and respect her diagnosis and take an active role in controlling and being aware of her status. Intervention: This will include why it is important to take and know her blood sugar levels and how exercise and diet can help her diabetes status and reverse any current or future complications associated with it. Education: Education will focus on diabetes normal values and possible outcomes from uncontrolled T2D, and how they can be affected by behavior change. Diabetes Management Reassessment (Date: 03/08/18): We are unaware at this time as to any improvement made towards diabetes management. We have been focused on other educational aspectsall of which have been seeing positive outcomes. Over the next month we will try to focus more of our educational resources towards her awareness of her diabetic state. Diabetes Management Reassessment (Date: 04/09/18): No update from the previous reassessment. Our focus this past month turned towards her osteoarthritis. Once this is controlled we will begin again with nutritional and diabetes management information. Diabetes Management Discharge/Follow-Up (Date: ): Weight Management Assessment: Patient currently weights approximately 196lbs with a BMI of 34kg/m2. Her waist circumference is 112cm which is above the average for women and demonstrates excess adiposity. Patient reports she would like to lose close to 35lbs. Weight Management Assessment Plan: Goals: Our goals will be to help the patient establish healthy behavior change that will over time help promote weight loss. Intervention: Our primary intervention will be to incorporate healthy dietary changes that can be maintained as well as increasing leisure time activity. Education: We will educate the patient that 30lbs is not a realistic goal to have over such a short period of time. We will focus on the scientifically recommended 5% loss of body weight for improved quality of life, which equals to a 10lbs loss for her. Weight Management Assessment Reassessment (Date: 03/08/18): The patient reports having lost significant amount of weight due to her previous edema and fluid retention. Most of that fluid has been lost now and she feels more comfortable. On top of that fluid loss, she reports that she has lost an additional 2lbs which she believes is strictly weight (not fluid). This is a great progress for her towards weight management, and we will continue to monitor her for future improvements and possible setbacks. Weight Management Reassessment (Date: 04/09/18): No update from previous reassessment. We will follow up with the patient to see if there have been any improvements or set backs. Weight Management Assessment /Follow-Up (Date: ): Physician Signature: Date: MTDD
[2018-04-13 13:31] VITALS: BP 120/70
[2018-04-13 13:33] VITALS: BP 120/74
[2018-04-25 12:56] VITALS: BP 124/70
[2018-04-25 12:57] VITALS: BP 116/72
[2018-04-27 18:21] VITALS: BP 102/64
[2018-04-27 18:22] VITALS: BP 98/72
[2018-04-30 13:34] VITALS: BP 104/68
[2018-04-30 13:35] VITALS: BP 104/60
[2018-05-02 17:54] VITALS: BP 120/78
[2018-05-02 17:56] VITALS: BP 102/62
[2018-05-04 13:09] VITALS: BP 120/72
[2018-05-04 13:10] VITALS: BP 118/68
[2018-05-07 13:03] VITALS: BP 128/70
[2018-05-07 13:04] VITALS: BP 122/70
--- NOTE | 2018-05-08 08:34 | CARDIAC REHAB PLAN OF CARE ---
Physician: Chaka Naqvi MD Patient is being seen: Aramis Fabi Medical Diagnosis: MVR, TVR, Afib Date of Onset: 01/25/18 Date of Initial Evaluation: 02/12/18 Date patient was last seen: 05/07/18 Number of treatments: 30 Number of cancellations/No Shows: 5 INTERVENTIONS: Due Date: 06/08/17 Patient Assessment: Patient comes to Cardiac Rehab following two valve repairs (both Mitral and Tricuspid Valves) and a Tripp-Maze IV Operation for her diagnosed atrial fibrillation. She also has a history of Type-2 Diabetes, hypertension, hyperlipidemia, breast cancer, and was recently diagnosed with sleep apnea. Over the next three months her main goals are to increase stamina and energy. She has a great support system through several different relatives (, daughter, and sister). She is currently sedentary but is eager to join the program. Exercise Assessment: During her 6-Minute Walk Test, the patient walked a total of 350ft, this amounted to an average speed of 0.66mph. She took three breaks during her test in which she sat for a minimum of 30 seconds to catch her breath and relax her back. Her SPO2 was WNL during the test (92-95%) on room air, which is above her resting (88%). She did, however, report significant shortness of breath at a +2 by minute 2 and +5 by minute 4. Her heart rate remained between 80-95bpm. While testing equipment she adhered to the recumbent bike well, stating it felt good on her knee and did not bother her back. This will be her primary form of exercise. Exercise Plan: Goals: By the end of the program it is our goals to have the patient exercising consistently for 150 minutes/week. This amounts to 50 minutes total per session. At least 30 of these minutes should be done consistently on the same machine (preferably the recumbent bike). It is also our goal to have her performing on average between 3-6 METs by the end of the program within her target HR goal at the time. Exercise Prescription: For the next month, the patients exercise prescription is as follows: Mode: Recumbent bike Frequency: 3 days/week (MWF) Duration: 15-30 minutes Intensity: HR 80-95bpm, 2.5-3.0 METs, RPE 2-3 Progression: The patients first goal will be to start progressing total time towards 30 minutes/session. Education: Primary exercise education will be on how to incorporate leisure time activity at home and how to properly progress exercise while at rehab over the next three months. Exercise Reassessment (Date: 03/08/18): The patient has been making significant progress over the past 3 weeks of rehab. Upon her enrollment she was extremely deconditioned and found it exhausting to do 15 minutes of exercise and often reported shortness of breath associated with exertion. Since then she has increased her total exercise duration to completing at least 45 minutes/session. During these sessions she has been able to maintain her targeted RPE and THR (averaging 80-85bpm) and has recently been able to average within her ideal MET range (2.6 METs). She also has not reported any shortness of breathrather she reports feeling good and being less fatigued. Lastly, she has also been motivated to start stretching at home on her own, which is a great behavior change. Due to this significant improvement we are going to create new target goals for this next month of exercise. Mode: Recumbent bike & NuStep Frequency: 3 days/week (MWF) Duration: 45-50 minutes/session Intensity: HR 85-95bpm, 2.5-3.5 METs, RPE 4-5 Progression: The patients next goal will be to maintain duration but increase intensity. By the end of the next month we would like her to be exercising on average at 3.5 METs. Exercise Reassessment (Date: 04/09/18): Over the past month the patient has undergone assessment on her knee which has concluded with diagnosis of extensive osteoarthritis. The pain in her knee as a result has caused her to dial back her exercise accordingly. However, the patient is still highly motivated to exercise and likes to push herself to improve. We have had to help her pace herself so that her pain is not too bad the days following exercise. In regards to her previous goals, despite her knee pain she has been able to achieve most of her goals on average. She has been exercise for at least 40+ minutes each session and her MET level is on average 2.5 (which is at the lower end of her previous goal). However, since we have to dial back the intensity her heart rate does not achieve her target goal. Over the next month, her goals will be adjusted to the following: Mode: Recumbent bike, Arm Ergometer, and NuStep Frequency: 3 days/week (MWF) Duration: 40+ minutes/session Intensity: THR 10bpm > resting HR METS 2.5-3.0 We will also encourage her to continue stretching at home to help relieve any discomfort. Exercise Reassessment (Date: 05/08/18): The patient has continued to be highly motivated to exercise despite her osteoarthritis. She had a cortisone shot in her knee, but she reports that is has not helped and the pain still persists. She has met all her previous goals for [id number]+ minutes/session with average METs between 2.5-3.0. We hope to continue this through the last two weeks. By the time the patients 36 visits are complete, we would ideally like to see her continue to phase III. We also will provide her with information pertaining to stretches and regular cardiorespiratory exercise. Exercise Discharge/Follow-Up (Date: ): Nutrition Assessment: Patient currently reports eating a typical [place] diet. This includes simple carbohydrates, lean meat, and fresh fruits/vegetables. She does regularly avoid dairy. She admits to having a sweet tooth and eating too many carbohydrates than she should. She and her family were receptive to the nutrition information provided and anxious to involve it on a familial level. She is diabetic but has it relatively under control as her HbA1c levels remain constant. She and her report starting to eat smaller portions and using portion control to help lose weight. The patient has a goal to eventually lose up to 30lbs. Nutrition Plan: Goals: Our goals for the program include helping the patient, and her family, develop nutritional behavior changes that can progress and be maintained through her lifetime. This include incorporating more whole grains, avoiding simple carbohydrates and sugar, and helping her understand nutrition label reading. Intervention: We will provide education to both the patient and her family through multiple sources including hard copy hand-outs and electronic versions that can be shared. Education: Education will focus first towards healthy food options, meals, and alternatives. We will then progress towards the how-tos of reading food/nutrition labels. Nutrition Reassessment (Date: 03/08/18): The patient and her family have been very receptive to nutritional information and have themselves asked for additional information they can provide to relatives. The patient reports continuing to eat smaller portions and enjoys the discussion about nutritional behavior changes. With this we will now move forward with instead of just providing information to now challenging her to make steps towards behavior change. We will start by having her assess the food she is currently eating and ask her to try making small changes to it (such as including whole grains and increasing vegetable intake). Nutrition Reassessment (Date: 04/09/18): No update from previous reassessment. Nutrition Reassessment (Date: 05/08/18): The patient has been provided with healthy holiday eating guides and is set to create a new years resolution aiming towards nutritional goals. Nutrition Discharge/Follow-Up (Date: ): Psychosocial Assessment: Patient reports at the higher end of normal depression limits according to the HADS assessment (12/16) and normal (09/16) for anxiety. This is confirmed verbally by the patient as she does admit to having some additional stress since her surgery and the difficulties following it. She does, however, have an amazing support system through her family that can aid in her process back to health. She is currently highly motivated to begin the program. Psychosocial Plan: Goals: Our goals will be to maintain the healthy psychosocial status the patient currently reports and to continue involving her family through the rehabilitation process. Intervention: We will continue to provide social support to the patient during her sessions as well as reach out to her family when appropriate for additional information and motivation. Education: Education will include ways to appropriately manage the anxiety associated with and learn to accept health decline her current health status. Psychosocial Reassessment (Date: 03/08/18): In reflection of the patients last few weeks at rehab and after talking with her one-on-one, she appears to be in higher spirits than when she started. She reports she feels a little more energized and is motivated by the progress she can see. She also says she enjoys having goalsit gives her something to work towards and helps to motivate her further. Lastly, we have been successful at involving her family in her rehab. They attend regularly with her and we have been able to provide them with information towards nutrition and additional stretching exercises which they report that have completed at home. All in all we will continue along this path over the next month and keep monitoring for improvements and setbacks as they arise. Psychosocial Reassessment (Date: 04/09/18): The patient continues to be in high spirits and enjoy cardiac rehab. Her family has since stopped regularly attending her CR sessions, demonstrating to us the trust they have instilled in our ability to provide care. We will continue along the same path this next month. Psychosocial Reassessment (Date: 05/08/18): No update from previous psychosocial reassessment. The patient is cooperative and demonstrates high motivation to exercise. Psychosocial Discharge/Follow-Up (Date: ): Diabetes Management Assessment: Patient is currently diagnosed with Type-2 Diabetes. She is currently taking metformin, but claims her physician told her that it is unnecessary to take her blood sugar levels as long as she is taking her medication. She does not follow a specific diet in hopes of controlling or altering her diabetes status. She says her HbA1c has remained stable for the past 3 years or so near 6.3. Diabetes Management Plan: Goals: Our primary goal will be to collect information on the patients T2D status to verify the information that she shares. Following this information, we will help the patient learn to appreciate and respect her diagnosis and take an active role in controlling and being aware of her status. Intervention: This will include why it is important to take and know her blood sugar levels and how exercise and diet can help her diabetes status and reverse any current or future complications associated with it. Education: Education will focus on diabetes normal values and possible outcomes from uncontrolled T2D, and how they can be affected by behavior change. Diabetes Management Reassessment (Date: 03/08/18): We are unaware at this time as to any improvement made towards diabetes management. We have been focused on other educational aspectsall of which have been seeing positive outcomes. Over the next month we will try to focus more of our educational resources towards her awareness of her diabetic state. Diabetes Management Reassessment (Date: 04/09/18): No update from the previous reassessment. Our focus this past month turned towards her osteoarthritis. Once this is controlled we will begin again with nutritional and diabetes management information. Diabetes Management Reassessment (Date: 05/08/18): The patient reports that she has not changed the way she eats or checks her blood sugar. We will aim to provide her with some education to take home with her on the subject prior to her completing her 36 visits. Diabetes Management Discharge/Follow-Up (Date: ): Weight Management Assessment: Patient currently weights approximately 196lbs with a BMI of 34kg/m2. Her waist circumference is 112cm which is above the average for women and demonstrates excess adiposity. Patient reports she would like to lose close to 35lbs. Weight Management Assessment Plan: Goals: Our goals will be to help the patient establish healthy behavior change that will over time help promote weight loss. Intervention: Our primary intervention will be to incorporate healthy dietary changes that can be maintained as well as increasing leisure time activity. Education: We will educate the patient that 30lbs is not a realistic goal to have over such a short period of time. We will focus on the scientifically recommended 5% loss of body weight for improved quality of life, which equals to a 10lbs loss for her. Weight Management Assessment Reassessment (Date: 03/08/18): The patient reports having lost significant amount of weight due to her previous edema and fluid retention. Most of that fluid has been lost now and she feels more comfortable. On top of that fluid loss, she reports that she has lost an additional 2lbs which she believes is strictly weight (not fluid). This is a great progress for her towards weight management, and we will continue to monitor her for future improvements and possible setbacks. Weight Management Reassessment (Date: 04/09/18): No update from previous reassessment. We will follow up with the patient to see if there have been any improvements or set backs. Weight Management Reassessment (Date: 05/08/18): No update from previous reassessment. Weight Management Assessment /Follow-Up (Date: ): Physician Signature: Date: MTDD
[2018-05-09 10:05] VITALS: BP 136/84
[2018-05-09 10:36] LABS: PLATELET COUNT, AUTOMATED 239 K/uL (150-450)
[2018-05-09 13:16] VITALS: BP_SYST 118; BP_SYST 120; BP_DIAS 64; BP_DIAS 72
[2018-05-11 13:30] VITALS: BP 118/64
[2018-05-11 13:31] VITALS: BP 92/58
== END 2018-05-13 ==
LOC: CARD 11:00
PROVIDERS: ATTEND Thoracic Surgery (Cardiothoracic Vascular Surgery)
DX: Z98.890 Other specified postprocedural states (principal); Z95.4 Presence of other heart-valve replacement; I48.91 Unspecified atrial fibrillation; M25.561 Pain in right knee
CPT/HCPCS: 36415; 85025; 93798; G0463; 82040; 82247; 82310; 82374; 82435; 82565; 82947; 84075; 84132; 84155; 84295; 84450; 84460; 84520; 99212

== ENCOUNTER 2018-05-25 11:00 | Outpatient (RCR) | payer MEDICARE, OTHER ==
[2018-05-14 17:09] VITALS: BP 104/70
[2018-05-14 17:12] VITALS: BP 98/62
[2018-05-18 13:28] VITALS: BP_SYST 120; BP_SYST 142; BP_DIAS 64; BP_DIAS 84
[2018-05-23 13:09] VITALS: BP 120/70
[2018-05-23 13:10] VITALS: BP 112/58
[2018-05-25 13:25] VITALS: BP 112/72
[2018-05-25 13:26] VITALS: BP 108/62
--- NOTE | 2018-05-28 11:39 | CARDIAC REHAB PLAN OF CARE ---
Physician: Scotty Naqvi MD Patient is being seen: Fabi Self Medical Diagnosis: MVR, TVR, Afib Date of Onset: 01/25/18 Date of Initial Evaluation: 02/12/18: Number of treatments: 36 Discharge Date: 05/28/18 Exercise Discharge/Follow-Up (Date: 05/28/18): Over the course of her 36 visit program, the patient has experienced significant improvements with her exercise tolerance. Upon her initial evaluation, the patient walked a total of 350ft during her 6-Minute Walk Test and had a peak HR of 85bpm. Upon her final evaluation, she walked 600ft during her 6-Minute Walk Test with a peak HR of 102bpm. This demonstrates a 71% improvement in overall distance. During her exercise sessions she increased her total duration from her initial 15 minutes, to 40 minutes on average. Her improvement in her HR both during her 6MW and during her exercise sessions demonstrates an improvement cardiorespiratory fitness level and tolerance. Lastly, during her first 2 weeks of rehab, the patient was continuously on 2L of O2 during exercise in order to maintain saturation, and she also reported shortness of breath. Both of these have subsided since. Nutrition Discharge/Follow-Up (Date: 05/28/18): No progress to report on nutritional habits or behavior change. Throughout the course of her 36 visit program, the patient and her family have been provided with numerous nutritional educational materials and have discussed dietary behavior change on a regular basis. Currently she is in the contemplative stage of motivationshe knows she needs to make changes but has not started planning those changes as of yet. Psychosocial Discharge/Follow-Up (Date: 05/28/18): Upon her initial evaluation the patient ranked at the high end of normal for both depression (7/21) and anxiety (4/21) according to the Hospital Anxiety and Depression scale (HADS). At discharge she improved in depression, scoring 4/21, and slightly increased in anxiety scoring 5/21. It was evident to the cardiac rehab staff that her psychological state significantly improved during her 36 visits. She is more positive, reports that she enjoys exercise, and has experienced an increase in overall energy. Diabetes Management Discharge/Follow-Up (Date: 05/28/18): No change in patients personal management of diabetes. She does not regularly check her blood sugar levels and trusts her medication to control her condition. Weight Management Discharge/Follow-Up (Date: 05/28/18): The patient self- reported a small decrease in weight from her initial evaluation. However, she does express frustration due to her knee pain that she has not been able to be as active at homewhich has impeded her weight loss management to a degree. Physician Signature: Date: MTDD
== END 2018-05-25 18:00 | disposition home or self-care (01) ==
LOC: CARD 11:00
PROVIDERS: ATTEND Thoracic Surgery (Cardiothoracic Vascular Surgery)
DX: I48.91 Unspecified atrial fibrillation (principal); Z95.4 Presence of other heart-valve replacement
CPT/HCPCS: 93798

== ENCOUNTER → 2018-10-25 | Outpatient (CLI) | payer MEDICARE, OTHER ==
--- NOTE | 2018-10-26 15:18 | RADIOLOGY IMAGING REPORT ---
FACILITY: [facility] PATIENT NAME: MARISABEL MCGUIRE : [id number] MR: [id number] V: [id number] EXAM DATE: [id number] ORDERING PHYSICIAN: SELVIN YEPEZ TECHNOLOGIST: Dee Downing PROCEDURE: BILATERAL DIGITAL SCREENING MAMMOGRAM WITH CAD ASSISTED INTERPRETATION & 3D TOMOSYNTHESIS REASON FOR STUDY: Screening FAMILY HISTORY OF BREAST CANCER: Paternal Aunt BREAST PROCEDURES/TREATMENTS: There is a midline anterior chest wall incision from open heart surgery. The patient also had a malignant lumpectomy of the Right breast in 2004 with radiation therapy & chemotherapy & a malignant lumpectomy of the Left breast in 2011 with radiation therapy. COMPARISON: 09/18/17, 09/15/16, 09/15/15, 07/03/14 VIEWS OBTAINED: Bilateral 2D & 3D full field CC & MLO projections BREAST DENSITY: The breasts are heterogeneously dense which can obscure small masses. MAMMOGRAM FINDINGS: There is extensive postsurgical scarring in the upper outer quadrant of both breast that appear similar to the prior study. The remainder of the parenchymal pattern has remained stable. IMPRESSION: BIRADS 2: Benign finding. DIAGNOSTIC CATEGORY 2--BENIGN FINDING. RECOMMENDATIONS: ROUTINE MAMMOGRAM AND CLINICAL EVALUATION. Dictated by: Zayra Rios M.D. on 10/25/2018 at 17:06 Transcribed by: ANNALISA on 10/26/2018 at 10:52 Approved by: Zayra Rios M.D. on 10/26/2018 at 15:17 [facility]
== END ==
LOC: MAMO 01:47
PROVIDERS: ATTEND Physician Assistant
DX: Z12.31 Encounter for screening mammogram for malignant neoplasm of breast (principal); Z80.3 Family history of malignant neoplasm of breast
CPT/HCPCS: 77063; 77067

== ENCOUNTER → 2018-12-20 | Outpatient (REF) | payer MEDICARE, OTHER ==
[2018-12-20 10:37] LABS: PLATELET COUNT, AUTOMATED 252 K/uL (150-450)
[2018-12-20 10:42] LABS: INR 1.04
== END ==
LOC: ZZSENDIN 10:13
PROVIDERS: ATTEND Family Medicine
DX: I48.91 Unspecified atrial fibrillation (principal); I10 Essential (primary) hypertension; E11.9 Type 2 diabetes mellitus without complications; E03.9 Hypothyroidism, unspecified
CPT/HCPCS: 82040; 82247; 82310; 82374; 82435; 82565; 82947; 83036; 84075; 84132; 84155; 84295; 84443; 84450; 84460; 84520; 85025; 85610

== ENCOUNTER 2018-12-31 02:26 | Inpatient (IN) | payer MEDICARE, OTHER ==
[~2018-12-31] VITALS: Ht 162.6 cm; Wt 85.7 kg
[2018-12-31] VITALS (9 sets, daily range): BP systolic 104–124; BP diastolic 62–84
[2018-12-31] MEDS ORDERED: fentaNYL CITR 250 MCG/5 ML AMP ONE (13:10)
[2018-12-31] MEDS ORDERED: PROPOFOL EMUL(*) 10MG/ML 20 ML 20 ML ONE (13:11)
[2018-12-31] MEDS ORDERED: LIDOCAINE 2% IV 100 MG/5ML SYR ONE (13:11)
[2018-12-31] MEDS ORDERED: ROCURONIUM BR 10 MG/ML 5 ML SY 5 ML ONE (13:12)
[2018-12-31] MEDS ORDERED: NORMOSOL R SOLN(*) 1000 ML BAG 1,000 ML IV PRN (13:25)
[2018-12-31] MEDS ORDERED: PREGABALIN 75 MG CAPSULE PO ONE (13:25)
[2018-12-31] MEDS ORDERED: LIDOCAINE/SOD BICARB 8.4% SYR ID ONE (13:25)
[2018-12-31] MEDS ORDERED: ceFAZolin(*) 2GM/D5W 50ML 50 ML IVPB ONE (13:25)
[2018-12-31] MEDS ORDERED: FAMOTIDINE 20 MG TAB PO ONE (13:25)
[2018-12-31] MEDS ORDERED: ACETAMINOPHEN 500 MG TAB PO ONE (13:25)
[2018-12-31] MEDS ORDERED: MIDAZOLAM 2 MG/2 ML VIAL IVP PRN (13:25)
[2018-12-31] MEDS ORDERED: KETAMINE HCL 200 MG/20 ML MDV ONE ×2 (15:51→16:54)
[2018-12-31] MEDS ORDERED: DEXAMETHASONE SOD PHOS 10MG/ML ONE (15:52)
[2018-12-31] MEDS ORDERED: ONDANSETRON 4 MG/2 ML VIAL ONE (15:52)
[2018-12-31] MEDS ORDERED: LABETALOL HCL 100 MG/20ML VIAL ONE (16:22)
[2018-12-31] MEDS: BACITRACIN 50000 UNIT/VIAL 50,000 UNIT in NS 0.9% IRRIG(*) 1000ML PLCT 1,000 ML IR PRN ×3 (16:33→17:50)
[2018-12-31] MEDS ORDERED: TRANEXAMIC AC 1000 MG/10ML SDV 1,000 MG in DEXTROSE 5% 50 ML BAG 50 ML IVPB ONE (17:00)
[2018-12-31] MEDS ORDERED: fentaNYL CITR 100 MCG/2 ML AMP ONE ×3 (17:38→19:46)
[2018-12-31] MEDS ORDERED: SUGAMMADEX SOD 200 MG/2 ML SDV ONE (17:41)
--- NOTE | 2018-12-31 17:42 | RADIOLOGY IMAGING REPORT ---
FACILITY: [facility] PATIENT NAME: Joshua Rodas : 1945 MR: [id number] V: [id number] EXAM DATE: ORDERING PHYSICIAN: SUZAN CLARK TECHNOLOGIST: Location: Patient: Joshua Rodas : 1945 Visit/Account:[id number] Date of Sevice: 12/31/2018 Study: XR LUMBAR SPINE SINGLE VIEW Indication: Intraoperative study Comparison study: None available Findings: Two views of the lumbar spine and lateral position demonstrates the presence of a surgical instrument and sponge is overlying the L3-4 level. There is no acute bony abnormality identified. IMPRESSION: Intraoperative study. Report Dictated By: Thaddeus Angel at 12/31/2018 5:33 PM Report E-Signed By: Thaddeus Angel at 12/31/2018 5:34 PM WSN:[id number]
[2018-12-31] MEDS ORDERED: APAP/HYDROCODONE 325/5 TAB PO PRN (19:25)
[2018-12-31] MEDS ORDERED: ACETAMINOPHEN 500 MG TAB PO PRN (19:25)
[2018-12-31] MEDS ORDERED: FLUSH 10 ML SYR IVP PRN (19:25)
[2018-12-31] MEDS ORDERED: BENZOCAINE/MENTHOL 1 EACH LOZG PO PRN (19:25)
[2018-12-31] MEDS ORDERED: LR(*) 1000 ML BAG 1,000 ML IV PRN (19:25)
[2018-12-31] MEDS ORDERED: MAGNESIUM HYDROXIDE* 30ML UDCP PO PRN (19:25)
[2018-12-31] MEDS ORDERED: HYDROmorphone HCL 2 MG/ML SDV IVP PRN (19:25)
[2018-12-31] MEDS ORDERED: ACETAMINOPHEN(*)1000 MG/100 ML 100 ML IVPB PRN (19:25)
[2018-12-31] MEDS ORDERED: oxyCODONE HCL 5 MG CAP PO PRN (19:25)
[2018-12-31] MEDS ORDERED: ONDANSETRON 4 MG/2 ML VIAL IVP PRN (19:25)
[2018-12-31] MEDS ORDERED: BISACODYL 10 MG SUPP PR PRN (19:25)
[2018-12-31] MEDS ORDERED: DIAZEPAM 5 MG TAB PO PRN (19:25)
[2018-12-31] MEDS ORDERED: diphenhydrAMINE 25 MG CAP PO PRN (19:25)
[2018-12-31] MEDS ORDERED: ACETAMINOPHEN(*)1000 MG/100 ML 100 ML IVPB ONE (19:26)
[2018-12-31] MEDS: DOCUSATE SODIUM 100 MG CAP PO SCH (21:18)
[2018-12-31] MEDS ORDERED: INSULIN HUM REG 100 UN/ML 3 ML VIAL SC PRN (21:35)
--- NOTE | 2018-12-31 22:14 | Hospitalist Progress Note ---
Subjective Progress Notes Subjective Post op lumbar laminectomy for spinal stenosis. Doing very well with minimal pain. Asked to order home meds by Dr. Han. 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 Reviewed all meds. Spoke to Dr. Han and he was agreeable to restarting eliquis 5mg po bid tomorrow morning. Physical Exam Vital Signs Date Time Temp Pulse Resp B/P (MAP) Pulse Ox O2 Delivery O2 Flow Rate FiO2 12/31/18 20:20 97.3 74 124/78 (93) 14 Nasal Cannula 1.0 12/31/18 20:15 14 General Appearance: Alert, Awake, No Acute Distress, Afebrile Cardiovascular: Other (S1S2 are very soft. No murmurs heard. Irregular rhythm.) Respiratory: Clear to Auscultation Psych: Alert & Oriented X3, Appropriate Mood & Affect Assessment and Plan Problems: (1) Spinal stenosis Status: Chronic Assessment & Plan: S/P lumbar lami- see Dr. Han. (2) Diabetes type 2, controlled Status: Chronic Assessment & Plan: Controlled with diet and metformin 500 mg po bid. Will check WBG this PM and before breakfast and cover with sliding scale insulin. D/C SS coverage after am WBG. (3) CHRONIC ATRIAL FIBRILLATION Status: Chronic Assessment & Plan: Related to underlying tricuspid and mitral valve disease. On eliquis 5 mg po bid and metoprolol 100 mg po daily both of which will restart tomorrow. Discussed eliquis with Dr. Han and he approved of starting tom. (4) Mitral incompetence Status: Resolved Assessment & Plan: S/P surgical repair. (5) Tricuspid incompetence Status: Resolved Assessment & Plan: S/P surgical repair. (6) Sleep apnea Status: Chronic Assessment & Plan: Will use her BIPAP unit while in hospital. (7) Hypertension Status: Chronic Assessment & Plan: Continue usual meds Losartan 100mg and HCTZ 25 mg daily with hold parameters. BP currently well controlled. (8) Hyperthyroidism Status: Chronic Assessment & Plan: Restart synthroid 0.125 mg po daily in morning. (9) Hyperlipemia Status: Chronic Assessment & Plan: Continue lipitor 40 mg po daily tomorrow. (10) Breast cancer Status: Resolved Assessment & Plan: Bilateral, surgically removed 2004,2011. Post chemotherapy with upper extremity neuropathy. Time Spent on Plan of Care: > 30 min PANCHO PARRA MD FACP Dec 31, 2018 22:14
[2018-12-31] MEDS ORDERED: NS(*) 0.9% 250 ML BAG 250 ML ONE (23:50)
[2018-12-31] MEDS: ceFAZolin(*) 2GM/D5W 50ML 50 ML IVPB SCH (23:58)
[2019-01-01] VITALS: BP 119/76
[2019-01-01 03:00] VITALS: BP 107/71
[2019-01-01 04:00] VITALS: BP 131/84
--- NOTE | 2019-01-01 05:31 | OPERATIVE REPORT 1 ---
EVENT DATE: December 31, 2018 SURGEON: Noel Han MD ANESTHESIOLOGIST: Dipak Menjivar MD ANESTHESIA: General endotracheal anesthesia. PERSONAL COMPANION: YONI Lentz PREOPERATIVE DIAGNOSIS Lumbar degenerative disk disease with multilevel spinal stenosis at L1-L2, L2- L3, L3-L4, and L4-L5. This was accompanied by neurogenic claudication and radiculopathy. POSTOPERATIVE DIAGNOSIS Lumbar degenerative disk disease with multilevel spinal stenosis at L1-L2, L2- L3, L3-L4, and L4-L5. This was accompanied by neurogenic claudication and radiculopathy. PROCEDURE PERFORMED L1 to L5 laminectomy. INTRAVENOUS FLUIDS 2700 mL. ESTIMATED BLOOD LOSS 240 mL. IMPLANTS None. SPECIMENS None. DRAINS None. COMPLICATIONS None. DISPOSITION Postanesthesia care unit. INDICATIONS FOR SURGERY Ms. Rodas is a crispin 73-year-old female who presented with known spinal stenosis. She had severe radiating bilateral buttock pain, numbness and tingling down the legs, and significant difficulty with walking tolerance. She had a positive shopping-cart sign, but noted that without a shopping cart or some other object to lean forward onto, her legs would grow incredibly tired and heavy with any attempts at long-distance walking. She had had an L4-L5 and L5- S1 laminoforaminotomy performed 25 years ago. Her physical examination was significant for difficulty extending past 5 degrees and difficulty with forward flexion. Her strength was 5/5 throughout, and light touch sensation was intact. Imaging studies including x-rays and an MRI showed no spondylolisthesis and no true scoliosis. The MRI showed severe spinal stenosis at L1-L2, L2-L3, L3-L4, and left greater than right at L4-L5. The L3-L4 level was the worst. Secondary to ongoing symptoms and failure of nonsurgical care, Ms. Rodas was ultimately offered and elected to undergo L1 to L5 laminectomy with a revision procedure being performed at the lower level. Prior to surgery, I explained in detail to the patient the possible risks of surgery. These risks include bleeding, infection, damage to surrounding structures, nerve root injury, spinal fluid leak, meningitis, persistent and/or worsening pain, need for further surgery, development of instability, , blindness, sexual dysfunction, autonomic nervous system dysfunction, and other unforeseen medical and surgical complications. An understanding that in general, spinal surgery is more predictive at improving extremity discomfort than axial spine pain was stressed. DESCRIPTION OF PROCEDURE On the day of surgery, the patient was met in the preoperative hold area and all questions were answered. The operative site was identified and marked by myself. The patient was brought in good condition to the operating room, and after succumbing to anesthesia was positioned in the prone position on a Carmine table. All bony protuberances and soft tissues were well padded in the standard fashion. Care was taken to maintain appropriate perfusion pressures during anesthesia. Preoperative antibiotics were administered according to the appropriate timing schedule. At the conclusion of the procedure, sponge and needle counts were correct x2. A final time-out was undertaken by members of the operating team to confirm correct patient, correct levels and correct surgery. The patient was then prepped and draped in the standard sterile orthopedic fashion. A vertical incision was made overlying the intended surgical levels, and sharp dissection was carried out down to the posterior elements. Soft tissues were elevated off the posterior elements in a subperiosteal manner, and a lateral radiograph was obtained to confirm appropriate spinal levels. Once all soft tissues had been removed from the lamina of L1, L2, L3, and L4, a Leksell rongeur was used to remove the spinous processes, and a EasyPaint bone cutter was used to complete this operation. The lamina were then thinned down the midline with a combination of Leksell rongeur and a high-speed 5 mm bur. I then took an angled curette and was able to undermine the superior insertion of the ligamentum flavum from the inferior aspect of the L4 lamina. Once I entered the canal, I used a [place] elevator to separate any dural adhesions from surrounding bone and soft tissue prior to use of the Kerrison punch. I then used a #3 and #4 Kerrison rongeur as well as the high-speed bur to perform midline decompression. This was completed from the superior aspect of the L5 lamina all the way up to and through the superior aspect of the L1 lamina. I then performed bilateral lateral recess decompressions at L1-L2, L2-L3, L3-L4, and L4-L5. The worst level was definitely L3-L4, where there was very thick and even calcified ligamentum flavum occupying the entire canal and severely compressing the neural elements. I was able to tease the majority of the ligamentum flavum off of the dura and therefore perform excellent bilateral decompressions at every level. Only at the L3-L4 level did I have to leave a small remnant of ligamentum flavum attached to the dura, but it was well decompressed in the lateral recess, and that small piece that was still attached was well within the laminectomy defect itself. Once I had completed both the lateral recess decompressions, I was able to palpate out in the lateral recesses with both a Alli elevator and a Wang probe. I found that the lateral recesses had been well decompressed, and the nerve roots in their foramina were well decompressed at each affected level as well. Lateral recess bleeding was controlled with FloSeal and surgical patties, and the wound was irrigated with copious antibiotic-impregnated sterile saline solution. Patties were then withdrawn and the wound was closed in layers using running Stratafix suture for the deep fascia, inverted interrupted sutures for the subcutaneous tissue, and then a running subcuticular skin stitch. Sponge and needle counts were correct x2. POSTOPERATIVE CARE PLAN The patient will remain in the hospital until she passes physical therapy and meets discharge criteria. She will then follow up in my clinic in approximately two weeks for a wound check and examination. HUGO
[2019-01-01] MEDS ORDERED: LEVOTHYROXINE SOD 0.125 MG TAB PO SCH (06:00)
[2019-01-01 07:31] VITALS: BP 114/76
--- NOTE | 2019-01-01 08:48 | NUR ---
Physical Therapy Impression PT eval complete. Pt agreeable to therapy session, reports that she has only been transferring to the [facility]. PT instruction for log roll technique, pt completed with verbal cues and Michelle. CGA/SBA for transfers with RW. Ambulation x150' with RW and CGA, verbal cues to widen ERICH and improve richard in order to increase safety. Pt reports that her legs feel "weak". PT instruction for stair negotiation with R) railing descending. Pt completed 3x5 stairs with CGA and improved safety and tolerance as session progressed. PT recommended [facility] in order to continue to address balance and gait needs, pt politely declined, but reported that she will consider it. Rec d/c home with use of RW and assistance with stair negotiation, no further PT visits planned. Physical Therapy Goals 1: Pt to complete bed mobility with Michelle 2: pt to complete transfers with SBA and RW 3: Pt to ambulate 150' with CGA and RW 4: Pt to asc/desc 5 stairs with CGA Patient's Goals
[2019-01-01] MEDS ORDERED: METOPROLOL SUCC XL 50 MG TABCR 50 MG TAB.ER.24H PO SCH (09:00)
[2019-01-01] MEDS ORDERED: metFORMIN HCL XR 500 MG TABCR PO SCH (09:00)
[2019-01-01] MEDS ORDERED: HYDROCHLOROTHIAZIDE 25 MG TAB PO SCH (09:00)
[2019-01-01] MEDS ORDERED: LOSARTAN POTASSIUM 50 MG TAB PO SCH (09:00)
[2019-01-01] MEDS ORDERED: APIXABAN 2.5 MG TABLET PO SCH ×2 (09:00)
[2019-01-01] MEDS: DOCUSATE SODIUM 100 MG CAP PO SCH (09:29)
[2019-01-01] MEDS: ceFAZolin(*) 2GM/D5W 50ML 50 ML IVPB SCH (09:29)
[2019-01-01 09:34] VITALS: BP 101/62
--- NOTE | 2019-01-01 09:41 | Hospitalist Progress Note ---
Subjective Progress Notes Subjective No acute events overnight. Pain is under control. No concerns reported from nursing overnight. She will restart her Eliquis tomorrow on 01/02. Patient Complains of: Neurological: No: Syncope, Confusion, Weakness Cardiovascular: No: Palpitations, Orthostatic Hypotension Respiratory: No: Cough, Congestion, Shortness of Breath Gastrointestinal: No Nausea Physical Exam Vital Signs Date Time Temp Pulse Resp B/P (MAP) Pulse Ox O2 Delivery O2 Flow Rate FiO2 01/01/19 07:31 97.7 89 16 114/76 (89) 95 Room Air 01/01/19 04:00 1.0 Intake and Output 01/01/19 01:03 Intake Total 2400 ml Output Total 150 ml Balance 2250 ml IV Total 2400 ml Output Estimated Blood Loss 150 ml General Appearance: Alert, Awake, No Acute Distress Neuro: No Gross deficits Cardiovascular: Regular Rate and Rhythm Respiratory: No Respiratory Distress GI: Soft and Non-Tender Psych: Alert & Oriented X3, Appropriate Mood & Affect Assessment and Plan Problems: (1) Spinal stenosis Status: Chronic Assessment & Plan: S/P lumbar lami- see Dr. Han. (2) Diabetes type 2, controlled Status: Chronic Assessment & Plan: Controlled with diet and metformin 500 mg po bid. SSI coverage overnight. Will transition back to her chronic management with metformin. (3) CHRONIC ATRIAL FIBRILLATION Status: Chronic Assessment & Plan: Related to underlying tricuspid and mitral valve disease. On eliquis 5 mg po bid and metoprolol 100 mg po daily. Metoprolol restarted today. Due to bleeding risks Eliquis not restarted today. Will restart back on her baseline dose on 01/02 in the morning. Will have her follow up with her PCP to continue management. (4) Mitral incompetence Status: Resolved Assessment & Plan: S/P surgical repair. (5) Tricuspid incompetence Status: Resolved Assessment & Plan: S/P surgical repair. (6) Sleep apnea Status: Chronic Assessment & Plan: Will continue home BIPAP use. (7) Hypertension Status: Chronic Assessment & Plan: Continue usual meds Losartan 100mg and HCTZ 25 mg daily with hold parameters. BP currently well controlled. Will have her follow up with her PCP to continue management. (8) Hyperthyroidism Status: Chronic Assessment & Plan: Restart synthroid 0.125 mg po daily. (9) Hyperlipemia Status: Chronic Assessment & Plan: Continue lipitor 40 mg po daily tomorrow. (10) Breast cancer Status: Resolved Assessment & Plan: Bilateral, surgically removed 2004,2011. Post chemotherapy with upper extremity neuropathy. Copies to: SELVIN YEPEZ PA-C; SUZAN HAN MD ; Exam Sepsis Risk: No Definite Risk LINH BOO Jan 01, 2019 09:41
[2019-01-01] MEDS ORDERED: DIA5 PO (10:43)
[2019-01-01] MEDS ORDERED: LOR5/325 PO (10:43)
[2019-01-01] MEDS ORDERED: DOCU240C84 PO (10:43)
[2019-01-01] MEDS ORDERED: ATORVASTATIN 40 MG TAB PO SCH (21:00)
[2019-01-02] MEDS ORDERED: APIXABAN 2.5 MG TABLET PO SCH (09:00)
== END 2019-01-01 11:00 | disposition home or self-care (01) | DRG 517 ==
LOC: OR 02:26 → MED 20:15
PROVIDERS: ADMIT Orthopaedic Surgery; ATTEND Orthopaedic Surgery
PROC: 5A09357 Assistance with Respiratory Ventilation, Less than 24 Consecutive Hours, Continuous Positive Airway Pressure (ICD-10-PCS; 2018-12-31)
PROC: 01NB0ZZ Release Lumbar Nerve, Open Approach (ICD-10-PCS; principal; 2018-12-31 15:50)
DX: M48.062 Spinal stenosis, lumbar region with neurogenic claudication (principal); M51.16 Intervertebral disc disorders with radiculopathy, lumbar region; I48.2 Chronic atrial fibrillation; E11.9 Type 2 diabetes mellitus without complications; I10 Essential (primary) hypertension; G47.33 Obstructive sleep apnea (adult) (pediatric); E03.9 Hypothyroidism, unspecified; E78.5 Hyperlipidemia, unspecified; Z85.3 Personal history of malignant neoplasm of breast; Z90.49 Acquired absence of other specified parts of digestive tract; Z92.21 Personal history of antineoplastic chemotherapy; Z79.84 Long term (current) use of oral hypoglycemic drugs
CPT/HCPCS: 36416; 72020; 82948; 86850; 86900; 86901; 97161; J0131; J0690; J1100; J1815; J2001; J2405; J2704; J3010; J3490; J7050; J7060